=== PATIENT | female | born 1955 | race Caucasian/White ===

== ENCOUNTER → 2024-01-20 07:37 | Outpatient (REF) | payer OTHER, SELFPAY ==
[2024-01-20 10:06] LABS: % Basophils 1.1 % (0-2); % Eosinophils 10.7 % (0-6); % Immature Granulocytes 0.2 % (0-0.5); % Lymphocytes 22.7 % (20.5-51.1); % Neutrophils 56.3 % (42.2-75.2); Absolute Basophils 0.1 10^3/uL (0-0.2); Absolute Eosinophils 0.5 10^3/uL (0-0.7); Absolute Monocytes 0.4 10^3/uL (0.1-0.6); Absolute Neutrophils 2.6 10^3/uL (1.4-6.5); Hemoglobin 12.9 g/dL (12.0-16.0); Mean Corp Hgb Conc. 33.1 g/dL (33.0-37.0); Mean Corpuscular Hgb 29.6 pg (27.0-31.0); Mean Corpuscular Volume 89.4 fL (81.0-99.0); Mean Platelet Volume 10.3 fL (7.4-10.4); Nucleated Red Blood Cells % 0 %; Platelet Count 371 10^3/uL (130-400); Red Blood Cell Count 4.36 10^6/uL (4.20-5.40); Red Cell Dist. Width 12.9 % (11.5-14.5); White Blood Cell Count 4.6 10^3/uL (4.8-10.8)
[2024-01-20 10:41] LABS: Blood Urea Nitrogen 24 mg/dl (7-17); Carbon Dioxide 28 mmol/L (22-30); Chloride 103 mmol/L (98-107); Glucose 92 mg/dl (70-99); Potassium 4.3 mmol/L (3.5-5.1); Sodium 139 mmol/L (135-145); eGFR > 60.00
== END ==
LOC: HWLAB 07:37
PROVIDERS: ATTENDING PHYSICIAN Orthopaedic Surgery; FAMILY PHYSICIAN Internal Medicine
DX: Z01.818 Encounter for other preprocedural examination (principal)
CPT/HCPCS: 36415; 80048; 85025; 93005

== ENCOUNTER → 2025-04-17 13:48 | Outpatient (REF) | payer OTHER, SELFPAY | LOC: HWRAD 13:48 | PROVIDERS: ATTENDING PHYSICIAN Advanced Practice Midwife; FAMILY PHYSICIAN Internal Medicine | DX: Z12.31 Encounter for screening mammogram for malignant neoplasm of breast (principal); Z78.0 Asymptomatic menopausal state | CPT/HCPCS: 77063; 77067; 77080 ==

== ENCOUNTER 2025-06-22 05:01 | Emergency (ER) | payer OTHER, SELFPAY ==
[2025-06-22 05:06] VITALS: BP 144/84
[2025-06-22 05:41] LABS: COVID-19 Antigen Negative (Negative)
[2025-06-22 06:10] VITALS: BP 140/61
[2025-06-22 06:24] LABS: Hematocrit 38.9 % (37.0-47.0); Hemoglobin 13.4 g/dL (12.0-16.0); Mean Corp Hgb Conc. 34.4 g/dL (33.0-37.0); Mean Corpuscular Volume 86.4 fL (81.0-99.0); Nucleated Red Blood Cells % 0 %; Platelet Count 421 10^3/uL (130-400); Red Cell Dist. Width 12.9 % (11.5-14.5)
[2025-06-22] MEDS: ZOFRAN 4 MG IV ×2 (06:37→08:24)
[2025-06-22] MEDS: TORADOL 15 MG IV ×2 (06:37→08:23)
--- NOTE | 2025-06-22 06:45 | ED.GENMED ---
History of Present Illness
General
Chief Complaint: Cold/Flu/URI Symptoms
Time Seen by Provider: 06/22/25 06:06
History of Present Illness
History of Present Illness:
70-year-old female without significant past medical history presenting for fever and generally feeling unwell. Patient reports symptoms for the past 3 days with fever, headache, body aches. Notes sick contacts at work. Denies cough. Also reports
nausea and vomiting. She has difficulty tolerating p.o. Denies abdominal pain. Denies neck pain. Denies additional acute medical complaints
Phy Exam
Physical Exam
Physical Exam:
General: Well-appearing, no clinical signs of dehydration, nontoxic and in no acute distress
HEENT: protecting airway, no oropharyngeal swelling or erythema.
Neck: appears supple, no tenderness in the neck or muscle rigidity
CV: Normal heart rate, regular rhythm
Resp: No accessory muscle use, no increased work of breathing, lungs clear to auscultation bilaterally
Abd: Soft and non-distended, no tenderness to palpation
Extremities: No deformities, no swelling
Neuro: alert, no focal neurologic deficit
: deferred
Rectal: deferred
Psych: Normal affect
Skin: Intact
Sepsis
Sepsis Screening
Sepsis Assessment: Sepsis Ruled Out
Sepsis Screen
Sepsis Screen: Sepsis Ruled Out
Date: 06/22/25
Time: 15:02
Course
Orders/Labs/Results
Orders:
Orders
06/22/25 05:15
COVID-19 Antigen Urgent
Source: Nasal Swab
Influenza A+B Rapid Molecular Urgent
BLAYNE Source: Nasal Swab
Specimen Description:
06/22/25 06:17
Basic Metabolic Panel Urgent
Complete Blood Count/With Diff Urgent
06/22/25 06:28
Acetaminophen [Tylenol] 1,000 mg PO NOW STA
Ketorolac [Toradol] 15 mg IV NOW STA
Ondansetron Injectable [Zofran] 4 mg IV NOW STA
06/22/25 08:12
0.9% Sodium Chloride 1000 ml [Nss] 1,000 ml IV BOLUS
Ketorolac [Toradol] 15 mg IV NOW STA
Ondansetron Injectable [Zofran] 4 mg IV NOW STA
Abnormal Lab Results
06/22/25
06:17
Plt Count 421 H 10^3/uL
(130-400)
Abs Immat Gran (auto) 0.1 H 10^3/uL
(0-0.05)
Absolute Neuts (auto) 7.4 H 10^3/uL
(1.4-6.5)
Absolute Lymphs (auto) 0.6 L 10^3/uL
(1.2-3.4)
Immature Gran % 1.1 H %
(0-0.5)
Neutrophils % 87.4 H %
(42.2-75.2)
Lymphocytes % 6.5 L %
(20.5-51.1)
Sodium 134 L mmol/L
(135-145)
Glucose 133 H mg/dl
(70-99)
06/22/25 06:17
06/22/25 06:17
Vital Signs
Initial and Last Documented VS:
Initial Vital Signs
Temp Pulse Resp BP Pulse Ox
101.5 F H 84 16 144/84 97
06/22/25 05:06 06/22/25 05:06 06/22/25 05:06 06/22/25 05:06 06/22/25 05:06
Last Documented Vital Signs
Temp Pulse Resp BP Pulse Ox
98.6 F 85 20 131/85 99
06/22/25 09:15 06/22/25 09:15 06/22/25 09:15 06/22/25 09:15 06/22/25 09:15
MDM/Problems Addressed
MDM/Problems Addressed:
70-year-old female without significant past medical history presenting for fever, nausea, vomiting, body aches. Vital signs on arrival are significant for fever.
On exam patient is resting comfortably, no acute distress, nontoxic. Similar presentation and physical exam appear most consistent with viral syndrome. No current criteria for SIRS. Without present concern for sepsis. Patient without cough,
without concern for pneumonia. No tenderness to abdomen without concern for intra-abdominal source of infection. Notes headache, however no nuchal rigidity or meningismus, without concern for meningitis. No present concern for systemic infection.
Patient had COVID and flu screening prior to my assessment, negative. Will treat patient with IV fluids, Zofran, Tylenol and Toradol for fever. Will screen with laboratory analysis.
08:10 -patient's labs are unremarkable. Fever has resolved. Patient notes that she still feeling unwell, however vitals remained stable. Will administer additional fluids, Zofran, Toradol and reassess
10:10 -reassessment patient notes that she is feeling much better. Remains adynamic as able. At this time feel stable for discharge with continued outpatient supportive therapy of likely viral syndrome. Advised continued hydration and symptom
control, fever control. Return precautions discussed and patient verbalized understanding
*Pulse Oximetry
SaO2: 97
Oxygen Mode of Delivery: Room air
Patient hypoxic: no
*Critical Care Note
Total Time (30-74mins, 75-104mins- exclusive of procedures): Not Applicable
ED Attending Note
-
Portions of this chart may have been created with voice recognition software.� Occasional wrong word or��sound alike� substitutions may have occurred due to the inherent limitations of voice recognition software.
Discharge Plan
Departure
Patient Disposition: Home (Routine Discharge)
Date of Disposition: 06/22/25
Time of Disposition: 10:24
Patient with high blood pressure during this ER visit?: No
Condition: Good
Discharge Problem:
Acute viral syndrome, Fever
Instructions: Fever, Adult (DC), Viral Syndrome (DC)
Prescriptions:
New
ondansetron 4 mg Tablet,Disintegrating
4 mg PO TIDPRN PRN (Reason: nausea/vomiting) Qty: 6 0RF
Referrals:
Óscar Koehler DO [Family Provider, Internal Medicine]
Activity Restrictions/Additional Instructions:
You were seen in the emergency department for fever
You are suspected to have a virus. You had reassuring laboratory analysis and vital signs. We recommend continued oral hydration, and fever control with Tylenol and Motrin.
Please follow-up closely with your primary care physician.
Return to the emergency department for any worsening of your symptoms, or any development of chest pain, difficulty breathing, abdominal pain with persistent vomiting and inability to tolerate food or liquid by mouth (concern for dehydration),
weakness, headache or confusion, fever greater than 100.4, or any additional symptoms that are concerning to you.
Thank you for choosing [facility].
Interventions
Interventions:
*Risk Screen - Suicide Last Done: 06/22/25 05:06
*General Assessment Last Done: 06/22/25 05:06
*Neglect/Abuse Screening Last Done: 06/22/25 05:06
*ED- Fall Risk Assessment Last Done: 06/22/25 05:06
*ED COVID-19 Vaccine History Last Done: 06/22/25 05:06
*Nursing Disposition Last Done: 06/22/25 10:44
ED- Pulmonary Assessment Last Done: 06/22/25 06:08
Discharge Date and Time
Discharge Date/Time: 06/22/25 10:46
Print Language: [id number]
[2025-06-22 06:52] LABS: Blood Urea Nitrogen 13 mg/dl (7-17); Calcium 8.9 mg/dl (8.4-10.2); Carbon Dioxide 23 mmol/L (22-30); Chloride 105 mmol/L (98-107); Glucose 133 mg/dl (70-99); Sodium 134 mmol/L (135-145); eGFR > 60.00
[2025-06-22 07:00] VITALS: BP 116/48
[2025-06-22] MEDS: NSS 1000 IV (08:24)
[2025-06-22 09:15] VITALS: BP 131/85
== END 2025-06-22 10:46 | disposition home or self-care (01) ==
LOC: EMR 05:01
PROVIDERS: Emergency Medicine; EMERGENCY PHYSICIAN Student in an Organized Health Care Education/Training Program; FAMILY PHYSICIAN Internal Medicine
DX: B34.9 Viral infection, unspecified (principal); R50.9 Fever, unspecified; R51.9 Headache, unspecified; Z86.16 Personal history of COVID-19
CPT/HCPCS: 99283; 96374; 96375; 96376; 96361; 80048; 85025; 87502; 87811